=== PATIENT | female | born 1995 | race Caucasian/White ===

== ENCOUNTER 2019-11-04 01:06 | Emergency (ER) | payer OTHER, BC, SELFPAY ==
--- NOTE | ~2019-11-04 | CT_ITS ---
EXAMINATION: CT abdomen pelvis w con DATE: 11/04/2019 03:28 INDICATION: Generalized abdominal pain. TECHNIQUE: Computed tomography (CT) of the abdomen and pelvis was performed with 100 mL Omnipaque 350 intravenous contrast. Automated exposure control and iterative reconstruction technique were employe d. The dose-length product was 636.49 mGy-cm. COMPARISON: None. FINDINGS: The visualized portions of the lung bases demonstrate mild atelectasis. No pleural effusion . The heart size is normal. No pericardial effusion. The liver, gallbladder, spleen, pancreas, adrena l glands, and kidneys are normal. There are no dilated loops of bowel. The appendix is normal. There are no pathologically enlarged lymph nodes. There is no free intraperitoneal fluid. The bones are unr emarkable. IMPRESSION: 1. No etiology for the patient's symptoms. Reviewed, dictated and finalized at location A. [facility]
[2019-11-04 01:09] VITALS: BP 141/89; PULSE 111; RESP 16; TEMP 37.3; O2SAT 99
[2019-11-04 01:15] VITALS: BP 139/90; PULSE 100; RESP 22; TEMP 38.3; O2SAT 99
--- NOTE | 2019-11-04 01:18 | ED.FEMALEGU ---
HPI - Female Genitourinary General Chief complaint: Urogenital-Female Stated complaint: bladder infection/ fever/ pain Time Seen by Provider: 11/04/19 01:18 Source: patient Mode of arrival: ambulatory Limitations: no limitations History of Present Illness HPI Narrative: A 24 y/o female presents to the ED with c/o dysuria for 4 days. Pt has a PMHx of frequent UTIs and states that she gets a UTI about once a year. Pt's LNMP was 3 weeks ago. Pt last took Tylenol at 7:00 PM. She reports a fever since yesterday, pelvic pain, back pain, and N/V, but denies lightheadedness and dizziness. Pertinent past history: recurrent UTIs Onset (ago): day(s) (4) Urinary symptoms: Dysuria Related Data Allergies Allergy/AdvReac Type Severity Reaction Status Date / Time No Known Allergies Allergy Unverified 08/09/16 11:56 Review of Systems Review of Systems: All systems reviewed & are unremarkable except as noted in HPI and below Constitutional: Constitutional: Reports fever(s) Comments: Denies: lightheadedness, dizziness Gastrointestinal: Gastrointestinal: Reports nausea and Reports vomiting Genitourinary: Genitourinary: Reports dysuria Musculoskeletal: Musculoskeletal: Reports back pain Comments: Reports: pelvic pain PMFSH Past Medical History Medical History (Updated 11/04/19 @ 05:07 by Heather Thompson MD) UTI (urinary tract infection) Social History Social History (Updated 11/04/19 @ 01:27 by Meredith Becker) Smoking status: Never smoker Comments PCP: Physician not on staff Exam Narrative: Exam Narrative: GENERAL: Well-appearing, well-nourished, and mild distress due to pain. HEAD: Normocephalic, atraumatic EYES: PERRLA and EOMI, conjunctiva clear without discharge THROAT:Mucous membranes moist, Oropharynx normal without erythema, exudate, peritonsillar swelling or fluctuance NECK: Supple, without lymphadenopathy or mass RESPIRATORY: No respiratory distress, Airway patent, Respirations non-labored, Clear to auscultation without rales, rhonchi or wheeze HEART: Regular rate and rhythm. No murmur heard. Normal peripheral pulses. ABDOMEN: Soft, Diffuse abdominal tenderness, nondistended, normal active bowel sounds. No masses. No rebound or guarding, No organomegaly. EXTREMITIES: No edema, normal strength with full range of motion. SKIN: Warm, dry, normal color without rash NEURO: Alert and oriented x3. CN 2-12 grossly intact. No focal deficits. PSYCH: Normal mood and affect. : External Female Exam: No lesion and No lesion Speculum Exam - Vagina: other (yellow and white mucous discharge, no odor) Speculum Exam - Cervix: Cervical os closed Bimanual exam- vagina & uterus: normal palpation Bimanual Exam- Adnexa, other: no masses and No adnexal tenderness Course Course Emergency Course: Patient presented wit habdominal pain, nausea, vomiting, fever and UTI symptoms. She denies uri symptoms. Patient is symptomatic with Urine so will start on antibiotics. Vital Signs Vital signs: Vital Signs Temperature 99.1 F 11/04/19 01:09 Pulse Rate 111 H 11/04/19 01:09 Respiratory Rate 16 11/04/19 01:09 Blood Pressure 141/89 H 11/04/19 01:09 Pulse Oximetry 99 11/04/19 01:09 Temperature 100.9 F H 11/04/19 01:15 Pulse Rate 100 11/04/19 01:15 Respiratory Rate 22 H 11/04/19 01:15 Blood Pressure 139/90 11/04/19 01:15 Pulse Oximetry 99 11/04/19 01:15 MDM - Female Genitourinary Lab Data Attestation: I reviewed the patient's lab results. Result diagrams: 11/04/19 01:57 11/04/19 01:57 Labs: Lab Results 11/04/19 11/04/19 11/04/19 Range/Units 01:42 01:57 01:57 WBC 10.4 H (4.5-10.0) K/mm3 RBC 4.33 (4.2-5.4) M/mm3 Hgb 13.7 (12.0-15.0) g/dL Hct 41.8 (37.0-47.0) % MCV 96.5 (80-100) fl MCH 31.6 (26-34) pg MCHC 32.8 (32-36) g/dl RDW 12.2 (11.5-14.5) % Plt Count 217 (150-375) k/mm3 MPV 11.0 H (7.4-10.4) fl Immat
--- NOTE | 2019-11-04 02:05 | PC.NURSE ---
Pain around abdomen upon palpation.
[2019-11-04 02:06] LABS: Add Urine Microscopic? YES; Appearance Urine Cloudy (Clear); Bacteria Urine Trace /hpf; Bilirubin Urine Negative (Negative); Blood Urine Negative (Negative); Color Urine Yellow (Yellow); Glucose Urine UA Negative (Negative); Ketones Urine Negative (Negative); Leukocyte Esterase Ur 1+ LEU/UL (Negative); Mucus Urine Rare /lpf; Nitrate Urine Negative (Negative); Protein Urine Negative (Negative); Specific Grav Ur 1.027 (1.001-1.035); Squamous Epithelial Cell Urine Many /hpf (Few); Urobilinogen Urine Negative mg/dL (<2.0)
[2019-11-04] MEDS: LACTATED RINGERS 1,000 ML 999 ML IV CONT (02:15)
[2019-11-04] MEDS: ONDANSETRON INJ 4 MG/2 ML VIAL IV PUSH (02:16)
[2019-11-04 02:59] LABS: Lipase 45 U/L (23-300)
[2019-11-04 03:00] LABS: Alanine Aminotransferase 23 U/L (4-35); Albumin Level 4.2 g/dL (3.5-5.1); Alkaline Phosphatase 105 U/L (38-126); Aspartate Amino Transferase 25 U/L (14-36); Basophils Percent Auto 0.2 % (0.2-1.2); Bilirubin,Total 0.3 mg/dL (0.2-1.3); Blood Urea Nitrogen 12 mg/dL (7-17); Calcium 8.6 mg/dL (8.4-10.2); Carbon Dioxide 26 mmol/L (22-30); Chloride 102 mmol/L (98-107); Eosinophils Absolute Auto 0.1 K/mm3 (0-0.3); Eosinophils Percent Auto 0.5 % (0-4.4); Estimated CRCL calculation 92 ml/min; Estimated Glomerular Filt Rate > 60; Glucose 112 mg/dL (65-105); Hematocrit 41.8 % (37.0-47.0); Hemoglobin 13.7 g/dL (12.0-15.0); Immature Granulocyte Absolute 0.03 K/mm3 (0.00-0.031); Immature Granulocyte Percent A 0.3 % (0-0.5); Lymphocytes Absolute Auto 1.65 K/mm3 (0.9-3.2); Lymphocytes Percent Auto 15.9 % (18.3-44.2); Mean Corpuscular HGB Conc 32.8 g/dl (32-36); Mean Corpuscular Hemoglobin 31.6 pg (26-34); Mean Corpuscular Volume 96.5 fl (80-100); Monocytes Absolute Auto 0.9 K/mm3 (0.1-0.6); Monocytes Percent Auto 9.1 % (2.6-8.5); Neutrophils Absolute Auto 7.7 K/mm3 (1.3-6.7); Platelet Count Result 217 k/mm3 (150-375); Potassium 4.2 mmol/L (3.4-5.0); Red Blood Count 4.33 M/mm3 (4.2-5.4); Red Cell Distribution Width 12.2 % (11.5-14.5); Sodium 139 mmol/L (137-145); White Blood Count 10.4 K/mm3 (4.5-10.0)
[2019-11-04 03:01] LABS: Lactic Acid Reflex 1.8 mmol/L (0.7-2.1)
[2019-11-04] MEDS: KETOROLAC 30 MG/ML VIAL (*BKC) IV PUSH (03:59)
[2019-11-04 05:19] VITALS: BP 108/76; RESP 17
== END 2019-11-04 19:21 | disposition home or self-care (01) ==
PROVIDERS: Emergency Provider General Practice
DX: N39.0 Urinary tract infection, site not specified (principal)
CPT/HCPCS: 36415; 74177; 80053; 81001; 81025; 83605; 83690; 85025; 87070; 87491; 87591; 87808; 96361; 96374; 96375; 99284; J0131; J1885; J2405; J7120; Q9967

== ENCOUNTER 2019-11-04 15:14 | Inpatient (IN) | payer OTHER, BC, SELFPAY ==
[2019-11-04 15:20] VITALS: BP 136/84; PULSE 96; RESP 18; TEMP 36.9; O2SAT 100
--- NOTE | 2019-11-04 15:36 | ED.HA ---
HPI - Headache General Chief Complaint: Headache Stated Complaint: migraine h/a, bodyaches, fever Time Seen by Provider: 11/04/19 15:28 Source: patient and RN notes reviewed Mode of arrival: ambulatory Limitations: no limitations History of Present Illness HPI Narrative: Pt is a 24 y/o female who presents to the ED with c/o severe frontal headache starting around 1 AM this morning. She notes that she developed a sharp pain in her forehead radiating into her bilateral temples early this morning. Pt states that she also developed a fever of 102 degrees, body aches, nausea, and vomiting early this morning. She notes that she was evaluated in the [place] ED for her symptoms early this morning, but states that her headache has worsened since she was discharged home. Pt notes that she is concerned she may have meningitis. She currently reports neck stiffness, but denies any dysuria or other urinary symptoms. Pt rates her headache at 9/10. MD elicited complaint: headache Onset (ago): hour(s) (14) Onset description: while at rest Location: frontal Severity: severe Pain scale (0-10): 9 Quality & Timing: sharp Associated symptoms: fever, nausea, vomiting, neck stiffness and other (body aches) Related Data Home Medications Medication Instructions Recorded Confirmed norethindrone-e.estradiol-iron 1 tablet PO DAILY 11/04/19 11/04/19 [09/19 (28)] Allergies Allergy/AdvReac Type Severity Reaction Status Date / Time No Known Allergies Allergy Unverified 08/09/16 11:56 Review of Systems Review of Systems: All systems reviewed & are unremarkable except as noted in HPI and below Constitutional: Constitutional: Reports body ache(s) and Reports fever(s) Gastrointestinal: Gastrointestinal: Reports nausea and Reports vomiting Genitourinary: Genitourinary: Denies hematuria and Denies dysuria Musculoskeletal: Musculoskeletal: Reports stiffness (neck) Neurologic: Reports headache(s) (frontal) [facility] Past Medical History Medical History (Updated 11/05/19 @ 08:00 by Lea Marin MD) No significant past medical history Surgical History Surgical History No significant past surgical history Family History Family History (Updated 11/04/19 @ 19:58 by Jayla Decker RN) Father Congestive heart failure Social History Social History (Updated 11/04/19 @ 22:07 by Adina Regalado DO) Social History: Primary care physician: None Code status: Full code Smoking status: Never smoker Alcohol intake: current Drinks per week: 2 Alcohol use details: She drinks 2-3 glasses a wine a week Substance use: never Substance use type: does not use Occupation/Education: occupation Additional occupation/education comments: 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 Gender identity (if verbalized by the patient): Female Spiritual care concerns: No Agree to blood products: Yes Exam Const: General: no acute distress and well developed Orientation/consciousness: oriented to person, oriented to place, oriented to time and patient oriented x3 HENMT: Head: normocephalic Ears: external ears normal General nose exam: Normal external nose present Neck: Neck: normal visual inspection Chest: Chest palpation & inspection: normal inspection of the chest and no tenderness Resp: Effort & Inspection: normal respiratory effort Auscultation: clear to auscultation bilaterally Cardio: Rate: regular rate Rhythm: regular rhythm GI: GI Palp: No abdominal tenderness and Yes Soft to palpation Skin: General skin exam: normal color and turgor normal Neuro: General: oriented to person, oriented to place, oriented to time and patient oriented x3 Cranial nerves: Yes CN's II-XII intact bilaterally Cognition (Neuro): normal cognition Motor exam (neuro): 5/5 motor strength present throughout Sensory Exam: normal sensation Extrem: General: no
[2019-11-04 15:54] LABS: Basophils Percent Auto 0.2 % (0.2-1.2); Eosinophils Percent Auto 0.2 % (0-4.4); Hematocrit 43.6 % (37.0-47.0); Hemoglobin 14.4 g/dL (12.0-15.0); Immature Granulocyte Absolute 0.03 K/mm3 (0.00-0.031); Immature Granulocyte Percent A 0.3 % (0-0.5); Lymphocytes Absolute Auto 1.57 K/mm3 (0.9-3.2); Lymphocytes Percent Auto 15.7 % (18.3-44.2); Mean Corpuscular Hemoglobin 31.9 pg (26-34); Mean Corpuscular Volume 96.5 fl (80-100); Mean Platelet Volume 10.2 fl (7.4-10.4); Monocytes Absolute Auto 0.7 K/mm3 (0.1-0.6); Monocytes Percent Auto 7.4 % (2.6-8.5); Neutrophils Absolute Auto 7.6 K/mm3 (1.3-6.7); Neutrophils Percent Auto 76.2 % (45.5-73.1); Platelet Count Result 202 k/mm3 (150-375); Red Blood Count 4.52 M/mm3 (4.2-5.4); Red Cell Distribution Width 12.3 % (11.5-14.5)
[2019-11-04 16:05] LABS: Blood Urea Nitrogen 9 mg/dL (7-17); Calcium 8.9 mg/dL (8.4-10.2); Carbon Dioxide 24 mmol/L (22-30); Chloride 105 mmol/L (98-107); Estimated CRCL calculation 92 ml/min; Estimated Glomerular Filt Rate > 60; Glucose 95 mg/dL (65-105); Potassium 4.2 mmol/L (3.4-5.0); Sodium 138 mmol/L (137-145)
[2019-11-04] MEDS: METOCLOPRAMIDE HCL INJ 10 MG/2 ML VIAL IV PUSH (16:09)
[2019-11-04] MEDS: KETOROLAC 30 MG/ML VIAL (*BKC) IV PUSH (16:10)
[2019-11-04] MEDS: SODIUM CHLORIDE 0.9% IV 1,000 ML 999 ML IV CONT (16:12)
[2019-11-04 17:01] LABS: Glucose CSF 47 mg/dL (40-70); Total Protein CSF 95 mg/dL (12-60)
[2019-11-04 17:27] LABS: Appearance CSF Clear (Clear); CSF source CSF
[2019-11-04 17:28] LABS: Color CSF Colorless (Colorless); Nucleated Cell CSF 833 /uL (0-5); Red Blood Cell CSF 0 (0-2)
[2019-11-04 17:40] LABS: Lymphocytes CSF 94 % (40-80); Neutrophils CSF 6 % (0-6)
[2019-11-04] MEDS: ACYCLOVIR SODIUM IVPB 700 MG in DEXTROSE 5% IN WATER 250 ML 266 MG IVPB (18:31)
--- NOTE | 2019-11-04 19:51 | ADMGEN ---
This patient, Virginia Mccoy, was admitted to Medical Room 248-. Patient/family oriented to hospital policies and general routines including ID bracelet, bed and alarms, visiting hours, pain management, procedures, bathroom and other care routines, personal items, smoking policy, room service/diet, and visiting hours. Valuables list has been completed. Information on how to activate the Rapid Response Team has been discussed. Patient/Family are encouraged to report perceived risks to care and to ask questions if they do not understand what they are told or what they should do.
[2019-11-04 20:00] VITALS: BP 113/71; PULSE 87; RESP 16; TEMP 36.4; O2SAT 98; BMI 32.7
[2019-11-04] MEDS: ACETAMINOPHEN 325 MG TABLET 650 MG PO (21:11)
--- NOTE | 2019-11-04 21:23 | PM.IMHP ---
H&P: HPI History of Present Illness Chief complaint: Headache, confusion and fever Narrative: Date and time of patient contact: 11/04/2019 at 9:30 p.m. Virginia Mccoy is a 24 year old female with no significant past medical history of presented to the ER with headache confusion and fever. The patient had initially presented to the ER on the early childhood education specialist hours of the . She had been having headache and fever starting on the . She had had some dysuria 3 or 4 days ago that had since resolved. She does have a history of urinary tract infections about once a year. She reports that she usually does not know that she has a urinary tract infection until she has a fever. She had a UA that 1+ esterase, 3-5 RBCs, 4-6 wbc's and many squamous cells with trace bacteria. Her urine was not sent for urine culture at the time. She also had a pelvic exam with Trichomonas negative with gonorrhea pending. She denied any vaginal discharge or dyspareunia. She has been having now 3 days fevers with a temperature as high as 102?, frontal and temporal headache worse with movement or activity. Her headache is moderate to severe in intensity. Headache has been worse with bright lights and with movement or exertion. She she has noticed a neck discomfort with flexion of her neck and with flexion of her hips. She reports that her headache got so bad that she had a few episodes of emesis clear material. She has had decreased appetite. She reports generalized body aches. 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 Her pain is a 9 at 10 in intensity but improved and is more moderate in intensity now. Her pain was improved after Tylenol administration. She does snore and feels frequently fatigued. She has never been tested for sleep apnea. Her weight has been stable. She is on control pills and has 2 more pills left to her pill pack. Review of Systems Review of Systems: Narrative: Except as documented in the HPI, all other systems were reviewed and are negative. [facility] Past Medical History Medical History (Updated 11/04/19 @ 21:26 by Adina Regalado DO) No significant past medical history Surgical History Surgical History No significant past surgical history Family History Family History (Updated 11/04/19 @ 19:58 by Jayla Decker RN) Father Congestive heart failure Social History Social History (Updated 11/04/19 @ 22:07 by Adina Regalado DO) Social History: Primary care physician: None Code status: Full code Smoking status: Never smoker Alcohol intake: current Drinks per week: 2 Alcohol use details: She drinks 2-3 glasses a wine a week Substance use: never Substance use type: does not use Occupation/Education: occupation Additional occupation/education comments: 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 Gender identity (if verbalized by the patient): Female Spiritual care concerns: No Agree to blood products: Yes Meds Home Medications and Allergies Home Medications Medication Instructions Recorded Confirmed Type norethindrone-e.estradiol-iron 1 tablet PO DAILY 11/04/19 11/04/19 History [09/19 (28)] Allergies Allergy/AdvReac Type Severity Reaction Status Date / Time No Known Allergies Allergy Unverified 08/09/16 11:56 Vital Signs Vital Signs - 24 hr 11/04/19 15:20 Temperature 98.5 F Pulse Rate 96 Respiratory Rate 18 Blood Pressure 136/84 Pulse Oximetry 100 Exam Narrative: Exam Narrative: PHYSICAL EXAM: WEIGHT 68 kg BMI 29.3 General: No acute distress, well-developed, obese HEENT: Mucous membranes are moist, no oral pharyngeal erythema, no scleral icterus, pupils are equal and reactive, nares patent Neck: No JVD, thyromegaly or lymphadenopathy Respiratory: Clear to auscultation bilaterally, no increased work of breathing Cardiovascular: Normal S1-S
[2019-11-04] MEDS: SODIUM CHLORIDE 0.9% IV 1,000 ML 100 ML IV CONT (22:32)
[2019-11-05 02:00] VITALS: BP 112/77; PULSE 83; RESP 16; TEMP 37.3; O2SAT 98
[2019-11-05] MEDS: KETOROLAC 30 MG/ML VIAL (*BKC) IV PUSH ×4 (02:50→22:25)
[2019-11-05 06:00] VITALS: BP 110/61; PULSE 96; RESP 16; TEMP 37.2; O2SAT 98
[2019-11-05] MEDS: ACYCLOVIR SODIUM IVPB ×3 (06:04→21:14)
[2019-11-05] MEDS: DEXTROSE 5% IVPB ×3 (06:04→21:14)
[2019-11-05] MEDS: SODIUM CHLORIDE 0.9% IV 1,000 ML 100 ML IV CONT (10:57)
[2019-11-05 11:00] VITALS: BP 123/81; PULSE 86; RESP 16; TEMP 36.6; O2SAT 100
[2019-11-05] MEDS: LIDOCAINE 5% PATCH 2 PATCH TRANSDERM (12:08)
[2019-11-05 14:00] VITALS: BP 124/81; PULSE 75; RESP 16; TEMP 37.2; O2SAT 100
--- NOTE | 2019-11-05 16:58 | PM.IMPN ---
Progress Note: A&P Assessment and Plan (1) Viral meningitis: Code(s): A87.9 - Viral meningitis, unspecified Status: Acute Assessment and Plan: Clinical findings and CSF results consistent with viral meningitis. Acyclovir started. Consider early bacterial so will contnue empiric antibiotic therapy with vancomycin and Rocephin. WBC 10K with left shift. BCx pending. CSF cultures pending. CSF Gram stain showing no organisms. UPT negative. Continue to follow. Subjective Date/time seen: 11/05/19 16:58 Interval history: 24yo female here for headache and neck pain. Patient still with photophobia. She is up walking to the BR. She still has the neck and lumbar pain. Lumbar pain began before the LP. She overall has been feeling achy. No appetite. No n/v. Exam Narrative: Exam Narrative: Gen - JARED sitharris gup in bed playing cards with family Neck - tender with forward flexion Chest - CTA bilaterally, nml RR CV - RRR S1/S2 Abd - soft, NT/ND, +BS Back - diane-lumbar area sensitive to touch. No swelling at LP site Ext - no pedal edema Neuro - AO. Nml strength. No focal weakess Skin - warm and dry. no rash Objective Data Vital Signs Vital Signs: Vital Signs - 24 hr 11/04/19 20:00 11/05/19 02:00 11/05/19 06:00 Temperature 97.5 F L 99.1 F 98.9 F Pulse Rate 87 83 96 Respiratory Rate 16 16 16 Blood Pressure 113/71 112/77 110/61 Pulse Oximetry 98 98 98 11/05/19 11:00 11/05/19 14:00 Temperature 97.9 F 99.0 F Pulse Rate 86 75 Respiratory Rate 16 16 Blood Pressure 123/81 124/81 Pulse Oximetry 100 100 Intake/Output Intake/Output: Intake & Output 11/02/19 11/03/19 11/04/19 11/05/19 23:59 23:59 23:59 23:59 Intake Total 1614 1464 Output Total 500 Balance 1614 964 Meds/Results Medications: Active Medications Generic Name Dose Route Start Last Admin Trade Name Freq PRN Reason Stop Dose Admin Acetaminophen 650 mg 11/04/19 21:01 11/04/19 21:11 Tylenol Tablet PO 650 mg Q4H PRN Administration Mild Pain (1-3) or Fever Acyclovir Sodium 700 mg/ 114 mls @ 110 mls/hr 11/05/19 06:00 11/05/19 16:06 Dextrose IVPB 110 mls/hr Q8HR MARCK Administration Sodium Chloride 1,000 mls @ 100 mls/hr 11/04/19 22:15 11/05/19 10:57 Normal Saline Iv IV CONT 100 mls/hr .Q10H MARCK Administration Ceftriaxone Sodium 2 gm in 100 mls @ 200 mls/hr 11/05/19 09:00 11/05/19 09:14 Rocephin 2 Gm/D5w 100 Ml IVPB Infused Q12H MARCK Infusion Vancomycin HCl 1,500 mg in 500 mls @ 333.333 mls/hr 11/05/19 10:00 11/05/19 10:57 Vancomycin 1,500 Mg/D5w 500 Ml IVPB 333.3 mls/hr Q12H MARCK Administration Ketorolac Tromethamine 30 mg 11/05/19 02:39 11/05/19 16:05 Toradol Inj IV PUSH 30 mg Q6H PRN Administration Pain Rated 4-6 Lidocaine 2 patch 11/05/19 09:00 11/05/19 12:08 Lidoderm TRANSDERM 2 patch DAILY MARCK Administration Ondansetron HCl 4 mg 11/04/19 22:16 Zofran Inj IV PUSH Q6H PRN Nausea And Vomiting Labs Labs: Laboratory Results - last 24 hr 11/04/19 11/04/19 16:40 16:40 CSF Source Csf CSF Appearance Clear CSF Color Colorless CSF RBC 0 CSF Tot Nucleated Cells 833 H CSF Neutrophils 6 CSF Lymphocytes 94 H CSF Glucose 47 CSF Total Protein 95 H Quality VTE Prophylaxis VTE prophylaxis: mechanical ordered (SCDs)
[2019-11-05 18:00] VITALS: BP 120/68; PULSE 94; RESP 16; TEMP 37.1; O2SAT 100
--- NOTE | 2019-11-05 18:57 | WPDNEURCNPN ---
Assessment and Plan Assessment and plan (1) Viral meningitis: Code(s): A87.9 - Viral meningitis, unspecified Status: Acute Additional Plan the present management needs to be continued the patient is definitely feeling better both clinically and otherwise once the cultures are negative and the PCR for herpes negative all the antibiotic and the antiviral agents can be discontinued Consult date: 11/05/19 Time Seen: 18:59 HPI: Virginai Mccoy is a 24 year old female was examined by this examiner early this evening for viral meningitis she is definitely feeling better however as post lumbar puncture headache and some dizziness she denies any severe headache loss of consciousness lateralizing paresthesias or focal weakness lumbar puncture and the CSF analysis consistent with a viral meningitis she is being treated with the antibiotics and the antiviral agent till the cultures are back and the PCR for the herpes is negative Review of Systems Review of Systems: All systems reviewed & are unremarkable except as noted in HPI and below PMFSH Past Medical History Medical History No significant past medical history Surgical History Surgical History No significant past surgical history Family History Family History Father Congestive heart failure Social History Social History Social History: Primary care physician: None Code status: Full code Smoking status: Never smoker Alcohol intake: current Drinks per week: 2 Alcohol use details: She drinks 2-3 glasses a wine a week Substance use: never Substance use type: does not use Occupation/Education: occupation Additional occupation/education comments: 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 Gender identity (if verbalized by the patient): Female Spiritual care concerns: No Agree to blood products: Yes Meds Home Medications and Allergies Home Medications Medication Instructions Recorded Confirmed Type norethindrone-e.estradiol-iron 1 tablet PO DAILY 11/04/19 11/04/19 History [09/19 (28)] Allergies Allergy/AdvReac Type Severity Reaction Status Date / Time No Known Allergies Allergy Unverified 08/09/16 11:56 Vital Signs Vital Signs - 24 hr 11/04/19 20:00 11/05/19 02:00 11/05/19 06:00 Temperature 36.4 C L 37.3 C 37.2 C Pulse Rate 87 83 96 Respiratory Rate 16 16 16 Blood Pressure 113/71 112/77 110/61 Pulse Oximetry 98 98 98 11/05/19 11:00 11/05/19 14:00 Temperature 36.6 C 37.2 C Pulse Rate 86 75 Respiratory Rate 16 16 Blood Pressure 123/81 124/81 Pulse Oximetry 100 100 Exam Const: General: comfortable and no acute distress HENMT: General nose exam: Normal nares present Mouth: Yes moist mucous membranes Eyes: General: appearance normal, both eyes and all related structures Neck: Neck: supple and no JVD Resp: Auscultation: clear to auscultation bilaterally Cardio: Rate: regular rate Rhythm: regular rhythm GI: Auscultation: normal bowel sounds Skin: General skin exam: normal color and no rashes or lesions noted Neuro: Other: patient is perfectly normal from the neurological standpoint there is no change in the mental status is speech and language functions normal cranial examination is normal motor examination is normal gait and station is preserved reflexes are preserved is no sensory motor deficit and the Babinski sign is negative Results Labs CBC & Chem 7: 11/04/19 15:49 11/04/19 15:49 Quality VTE Prophylaxis VTE prophylaxis: mechanical ordered (SCDs)
[2019-11-05] MEDS: ONDANSETRON INJ 4 MG/2 ML VIAL IV PUSH (20:10)
[2019-11-05] MEDS: ACETAMINOPHEN 325 MG TABLET 650 MG PO (20:14)
[2019-11-05 22:00] VITALS: BP 120/70; PULSE 93; RESP 16; TEMP 37.6; O2SAT 97
[2019-11-06] VITALS (7 sets, daily range): BP systolic 103–132; BP diastolic 62–91; PULSE 71–104; RESP 16; TEMP 36.3–37.6; O2SAT 99–100
--- NOTE | 2019-11-06 03:01 | PC.NURSE ---
Daylight Savings Time For Daylight Savings Time Ending in the Fall - Clocks are moved back. For Daylight Savings Time Beginning in the Spring - Clocks are moved ahead. For [facility], the time of change occurs at 0200 hrs. Time is taken from the civil process server. This entry on the patient's chart recognizes the change in time reflected during documentation. Example: 2 entries for vital signs may be charted for 0200 hrs.
[2019-11-06] MEDS: ACYCLOVIR SODIUM IVPB ×3 (05:13→21:08)
[2019-11-06] MEDS: DEXTROSE 5% IVPB ×3 (05:13→21:08)
[2019-11-06] MEDS: SODIUM CHLORIDE 0.9% IV 1,000 ML 70 ML IV CONT ×2 (05:15→20:21)
[2019-11-06] MEDS: ACETAMINOPHEN 325 MG TABLET 650 MG PO ×3 (06:19→20:19)
[2019-11-06] MEDS: KETOROLAC 30 MG/ML VIAL (*BKC) IV PUSH (07:59)
[2019-11-06] MEDS: LIDOCAINE 5% PATCH 2 PATCH TRANSDERM (08:00)
--- NOTE | 2019-11-06 15:50 | WPDNEURORHBP ---
Subjective Date/time seen: 11/06/19 15:50 Interval history: this 24-year-old young woman is doing remarkably well laughing and giggling having a decent conversation and much better than the previous days denies any headache nausea vomiting chest pain shortness of breath she is on antibiotics and also antiviral agents to the cultures are come back from what sounds like a viral meningitis garden variety once this is done then she probably can be discharged tomorrow there is no change in the mental status and nothing to suggest any ongoing intracranial process Review of Systems Review of Systems: All systems reviewed & are unremarkable except as noted in HPI and below Exam Const: General: comfortable and no acute distress HENMT: General nose exam: Normal nares present Mouth: Yes moist mucous membranes Eyes: General: appearance normal, both eyes and all related structures Neck: Neck: supple and no JVD Resp: Effort & Inspection: normal respiratory effort Auscultation: clear to auscultation bilaterally Cardio: Rate: regular rate Rhythm: regular rhythm GI: GI Palp: Yes Soft to palpation Auscultation: normal bowel sounds Skin: General skin exam: normal color and no rashes or lesions noted Neuro: Other: perfectly normal mental status examination likewise normal cranial examination normal motor functions of both upper lower extremity normal gait and station normal sensations and normal cerebellar testing and normal gait and station Extrem: General: normal to inspection Psych: Mental Status: mental status grossly normal Objective Data Vital Signs Vital Signs: Vital Signs - 24 hr 11/05/19 18:00 11/05/19 22:00 11/06/19 03:00 Temperature 37.1 C 37.6 C H 37.0 C Pulse Rate 94 93 71 Respiratory Rate 16 16 16 Blood Pressure 120/68 120/70 103/63 Pulse Oximetry 100 97 99 11/06/19 06:00 11/06/19 10:00 11/06/19 13:12 Temperature 37.6 C H 36.8 C 37.1 C Pulse Rate 104 H 98 Respiratory Rate 16 16 Blood Pressure 119/62 129/91 H Pulse Oximetry 99 100 Intake/Output Intake/Output: Intake & Output 11/03/19 11/04/19 11/05/19 11/07/19 23:59 23:59 23:59 00:59 Intake Total 1612 7702 2444 Output Total 1850 1000 Balance 2743 233 9110 Meds/Results Medications: Active Medications Generic Name Dose Route Start Last Admin Trade Name Freq PRN Reason Stop Dose Admin Acetaminophen 650 mg 11/04/19 21:01 11/06/19 13:08 Tylenol Tablet PO 650 mg Q4H PRN Administration Mild Pain (1-3) or Fever Acyclovir Sodium 700 mg/ 114 mls @ 110 mls/hr 11/05/19 06:00 11/06/19 14:37 Dextrose IVPB 110 mls/hr Q8HR MARCK Administration Sodium Chloride 1,000 mls @ 70 mls/hr 11/04/19 22:15 11/06/19 05:15 Normal Saline Iv IV CONT 70 mls/hr .[id number] MARCK Administration Ceftriaxone Sodium 2 gm in 100 mls @ 200 mls/hr 11/05/19 09:00 11/06/19 08:30 Rocephin 2 Gm/D5w 100 Ml IVPB Infused Q12H MARCK Infusion Vancomycin HCl 1,500 mg in 500 mls @ 333.333 mls/hr 11/05/19 10:00 11/06/19 12:15 Vancomycin 1,500 Mg/D5w 500 Ml IVPB Infused Q12H MARCK Infusion Ketorolac Tromethamine 30 mg 11/05/19 02:39 11/06/19 07:59 Toradol Inj IV PUSH 30 mg Q6H PRN Administration Pain Rated 4-6 Lidocaine 2 patch 11/05/19 09:00 11/06/19 08:00 Lidoderm TRANSDERM 2 patch DAILY MARCK Administration Ondansetron HCl 4 mg 11/04/19 22:16 11/05/19 20:10 Zofran Inj IV PUSH 4 mg Q6H PRN Administration Nausea And Vomiting Progress Note: A&P Assessment and Plan (1) Viral meningitis: Code(s): A87.9 - Viral meningitis, unspecified Status: Acute Additional Plan discussed with the hospitalist the patient is doing remarkably well and wants her cultures and the PCR for herpes is negative she can be discharged with the current medications
--- NOTE | 2019-11-06 16:10 | PM.IMPN ---
Progress Note: A&P Assessment and Plan (1) Viral meningitis: Code(s): A87.9 - Viral meningitis, unspecified Status: Acute Assessment and Plan: Clinical findings and CSF results consistent with viral meningitis. Remains on Acyclovir. Early bacterial infection also being considered so she will remain on IV abx. WBC 10K with left shift on admission. [id number]. CSF cultures NGTD. CSF Gram stain showing no organisms. UPT negative. HSV PCR pending. Continue to follow. Discussed Nephrology. Appreciate neurology input Subjective Date/time seen: 11/06/19 16:10 Interval history: 24yo female here for headache and neck pain. QUISPE better. Neck stiffness improved as well. Eating small amounts. low back better. Exam Narrative: Exam Narrative: Gen - NARD Neck - improved ROm with less pain Chest - CTA bilaterally, nml RR CV - RRR S1/S2 Abd - soft, NT/ND, +BS Back - no diane-lumbar pain or swellinig Ext - no pedal edema Skin - warm and dry. no rash Objective Data Vital Signs Vital Signs: Vital Signs - 24 hr 11/05/19 18:00 11/05/19 22:00 11/06/19 03:00 Temperature 98.8 F 99.7 F H 98.6 F Pulse Rate 94 93 71 Respiratory Rate 16 16 16 Blood Pressure 120/68 120/70 103/63 Pulse Oximetry 100 97 99 11/06/19 06:00 11/06/19 10:00 11/06/19 13:12 Temperature 99.7 F H 98.2 F 98.7 F Pulse Rate 104 H 98 Respiratory Rate 16 16 Blood Pressure 119/62 129/91 H Pulse Oximetry 99 100 Intake/Output Intake/Output: Intake & Output 11/03/19 11/04/19 11/05/19 11/07/19 23:59 23:59 23:59 00:59 Intake Total 1614 2812 2444 Output Total 1850 1000 Balance 2107 086 4530 Meds/Results Medications: Active Medications Generic Name Dose Route Start Last Admin Trade Name Freq PRN Reason Stop Dose Admin Acetaminophen 650 mg 11/04/19 21:01 11/06/19 13:08 Tylenol Tablet PO 650 mg Q4H PRN Administration Mild Pain (1-3) or Fever Acyclovir Sodium 700 mg/ 114 mls @ 110 mls/hr 11/05/19 06:00 11/06/19 14:37 Dextrose IVPB 110 mls/hr Q8HR MARCK Administration Sodium Chloride 1,000 mls @ 70 mls/hr 11/04/19 22:15 11/06/19 05:15 Normal Saline Iv IV CONT 70 mls/hr .[id number] MARCK Administration Ceftriaxone Sodium 2 gm in 100 mls @ 200 mls/hr 11/05/19 09:00 11/06/19 08:30 Rocephin 2 Gm/D5w 100 Ml IVPB Infused Q12H MARCK Infusion Vancomycin HCl 1,500 mg in 500 mls @ 333.333 mls/hr 11/05/19 10:00 11/06/19 12:15 Vancomycin 1,500 Mg/D5w 500 Ml IVPB Infused Q12H MARCK Infusion Ketorolac Tromethamine 30 mg 11/05/19 02:39 11/06/19 07:59 Toradol Inj IV PUSH 30 mg Q6H PRN Administration Pain Rated 4-6 Lidocaine 2 patch 11/05/19 09:00 11/06/19 08:00 Lidoderm TRANSDERM 2 patch DAILY MARCK Administration Ondansetron HCl 4 mg 11/04/19 22:16 11/05/19 20:10 Zofran Inj IV PUSH 4 mg Q6H PRN Administration Nausea And Vomiting Quality VTE Prophylaxis VTE prophylaxis: mechanical ordered (SCDs)
[2019-11-06 21:32] LABS: Vancomycin Trough 10.4 ug/mL (10.0-20.0)
[2019-11-07 03:21] VITALS: BP 109/66; PULSE 66; RESP 16; TEMP 36.6; O2SAT 98
[2019-11-07] MEDS: DEXTROSE 5% IVPB ×3 (05:31→20:55)
[2019-11-07] MEDS: ACYCLOVIR SODIUM IVPB ×3 (05:31→20:55)
[2019-11-07] MEDS: ACETAMINOPHEN 325 MG TABLET 650 MG PO ×3 (05:35→20:17)
[2019-11-07 06:17] VITALS: BP 129/79; PULSE 98; RESP 18; TEMP 36.7; O2SAT 100
[2019-11-07 06:21] LABS: Estimated CRCL calculation 132 ml/min; Estimated Glomerular Filt Rate > 60
[2019-11-07] MEDS: LIDOCAINE 5% PATCH 2 PATCH TRANSDERM (10:51)
[2019-11-07 11:59] VITALS: BP 130/86; PULSE 74; RESP 18; TEMP 37.2; O2SAT 100
[2019-11-07 14:00] VITALS: BP 126/73; PULSE 87; RESP 15; TEMP 36.8; O2SAT 100
--- NOTE | 2019-11-07 16:57 | PM.IMPN ---
Progress Note: A&P Assessment and Plan (1) Viral meningitis: Code(s): A87.9 - Viral meningitis, unspecified Status: Acute Assessment and Plan: Clinical findings and CSF results consistent with viral meningitis. Remains on Acyclovir. Early bacterial infection also being considered so she is currently on Rocephin and Vancomycin at meningitic doses. WBC 10K with left shift on admission. BCx NGTD. CSF Gram stain showing no organisms. CSF cultures NGTD. UPT negative. HSV PCR still pending. Called lab and they state result should be final tomorrow. Subjective Date/time seen: 11/07/19 0800 Interval history: 24yo female here for headache and neck pain. Feels much better today. Eating better. Back and neck pain improved as well. Exam Narrative: Exam Narrative: Gen - NARD Chest - CTA bilaterally, nml RR CV - RRR S1/S2 Abd - soft, NT/ND, +BS Ext - no pedal edema Skin - warm and dry. Objective Data Vital Signs Vital Signs: Vital Signs - 24 hr 11/06/19 18:00 11/06/19 22:18 11/07/19 03:21 Temperature 98.5 F 98.1 F 97.8 F Pulse Rate 81 82 66 Respiratory Rate 16 16 16 Blood Pressure 118/72 132/77 109/66 Pulse Oximetry 100 100 98 11/07/19 06:17 11/07/19 11:59 11/07/19 14:00 Temperature 98.1 F 99.0 F 98.2 F Pulse Rate 98 74 87 Respiratory Rate 18 18 15 Blood Pressure 129/79 130/86 126/73 Pulse Oximetry 100 100 100 Intake/Output Intake/Output: Intake & Output 11/04/19 11/05/19 11/06/19 11/07/19 22:59 22:59 23:59 23:59 Intake Total 2410 Output Total 1200 Balance 1210 Meds/Results Medications: Active Medications Generic Name Dose Route Start Last Admin Trade Name Freq PRN Reason Stop Dose Admin Acetaminophen 650 mg 11/04/19 21:01 11/07/19 12:44 Tylenol Tablet PO 650 mg Q4H PRN Administration Mild Pain (1-3) or Fever Acyclovir Sodium 700 mg/ 114 mls @ 110 mls/hr 11/05/19 06:00 11/07/19 14:46 Dextrose IVPB 110 mls/hr Q8HR MARCK Administration Sodium Chloride 1,000 mls @ 70 mls/hr 11/04/19 22:15 11/07/19 05:37 Normal Saline Iv IV CONT 70 mls/hr .[id number] MARCK Infusion Ceftriaxone Sodium 2 gm in 100 mls @ 200 mls/hr 11/05/19 09:00 11/07/19 12:40 Rocephin 2 Gm/D5w 100 Ml IVPB 200 mls/hr Q12H MARCK Administration Vancomycin HCl 1,750 mg in 500 mls @ 250 mls/hr 11/07/19 08:00 11/07/19 10:17 Vancomycin 1,750 Mg/D5w 500 Ml IVPB Infused Q12H MARCK Infusion Ketorolac Tromethamine 30 mg 11/05/19 02:39 11/06/19 07:59 Toradol Inj IV PUSH 30 mg Q6H PRN Administration Pain Rated 4-6 Lidocaine 2 patch 11/05/19 09:00 11/07/19 10:51 Lidoderm TRANSDERM 1 patch DAILY MARCK Administration Ondansetron HCl 4 mg 11/04/19 22:16 11/05/19 20:10 Zofran Inj IV PUSH 4 mg Q6H PRN Administration Nausea And Vomiting Labs Labs: Laboratory Results - last 24 hr 11/06/19 11/07/19 20:53 05:34 Creatinine 0.50 L Estim Creat Clear Calc 132 Estimated GFR > 60 Vancomycin Trough 10.4 Quality VTE Prophylaxis VTE prophylaxis: mechanical ordered (SCDs)
[2019-11-07] MEDS: SODIUM CHLORIDE 0.9% IV 1,000 ML 70 ML IV CONT (17:32)
[2019-11-07 18:00] VITALS: BP 112/61; PULSE 86; RESP 18; TEMP 36.6; O2SAT 99
[2019-11-07 20:00] VITALS: BP 110/70; PULSE 82; RESP 20; TEMP 36.5; O2SAT 98
[2019-11-07 22:03] LABS: Herpes Simplex Type 1 DNA PCR Not Detected (Not Detected); Herpes Simplex Type 2 DNA PCR Detected (Not Detected)
[2019-11-08] VITALS: BP 112/65; PULSE 67; RESP 20; TEMP 36.2; O2SAT 99
[2019-11-08 04:00] VITALS: BP 120/69; PULSE 74; RESP 18; TEMP 36.3; O2SAT 99
[2019-11-08] MEDS: DEXTROSE 5% IVPB ×2 (05:31→13:53)
[2019-11-08] MEDS: ACYCLOVIR SODIUM IVPB ×2 (05:31→13:53)
[2019-11-08] MEDS: ACETAMINOPHEN 325 MG TABLET 650 MG PO ×2 (05:43→10:42)
[2019-11-08 06:17] VITALS: BP 170/77; PULSE 78; RESP 11; TEMP 36.1; O2SAT 100
[2019-11-08] MEDS: LIDOCAINE 5% PATCH 2 PATCH TRANSDERM (08:49)
--- NOTE | 2019-11-08 11:57 | WPDNEUROPN ---
Progress Note: A&P Assessment and Plan (1) Viral meningitis: Code(s): A87.9 - Viral meningitis, unspecified Status: Acute Additional Plan spinal [id number] cells,cultures negative,[id number] DNAPCR positive will be started on po acyclovir and discharged and follow in the office Review of Systems Review of Systems: All systems reviewed & are unremarkable except as noted in HPI and below Exam Const: General: cooperative, healthy appearing, comfortable, no acute distress, well developed, alert, awake, Physically active and well groomed Nutritional Appearance: average body habitus Orientation/consciousness: patient oriented x3 Limitations: no limitations HENMT: Head: normal to inspection Ears: hearing grossly normal bilaterally General nose exam: Normal external nose present Face and sinus: normal facial exam Mouth: Yes Normal oral and palatal mucosa present Eyes: General: appearance normal, both eyes and all related structures Visual Mcgill: normal visual mcgill by confrontation Alignment and Position: alignment normal Periorbital: periorbital findings normal Eyelids: eyelids normal Conjunctivae: conjunctivae normal Sclera: sclerae normal Cornea: corneas normal Pupils: Equal, round and reactive pupils present EOM: EOMs intact bilaterally Direct Ophthalmoscopy: normal light reflex Neck: Neck: full ROM and no lymphadenopathy Resp: Effort & Inspection: normal respiratory effort and able to speak in complete sentences Auscultation: clear to auscultation bilaterally Cardio: Rate: regular rate Rhythm: regular rhythm Skin: General skin exam: no rashes or lesions noted Neuro: General: patient oriented x3, gait normal, moves all extremities and no meningeal signs Cranial nerves: Yes CN's II-XII intact bilaterally, Yes Equal, round and reactive pupils present, Yes Nystagmus not present, Yes Normal facial strength present, Yes facial symmetry, Yes Midline tongue present, Yes Normal gag reflex present, Yes Ability to bilaterally rotate head present and Yes Ability to bilaterally elevate shoulders present Cognition (Neuro): normal cognition Speech: normal speech Gait exam (Neuro): Normal gait present Motor exam (neuro): 5/5 motor strength present throughout Sensory Exam: normal sensation Deep tendon reflexes (DTR's): Right triceps reflex intensity grade: 1+, Left triceps reflex intensity grade: 1+, Rt Biceps (C5, C6): 1+, Left biceps reflex intensity grade: 1+, Right brachioradialis reflex intensity grade: 1+, Left brachioradialis reflex intensity grade: 1+, Right patellar reflex intensity grade: 1+, Left patellar reflex intensity grade: 1+, Right ankle reflex intensity grade: 1+ and Left ankle reflex intensity grade: 1+ Objective Data Vital Signs Vital Signs: Vital Signs - 24 hr 11/07/19 11:59 11/07/19 14:00 11/07/19 18:00 Temperature 37.2 C 36.8 C 36.6 C Pulse Rate 74 87 86 Respiratory Rate 18 15 18 Blood Pressure 130/86 126/73 112/61 Pulse Oximetry 100 100 99 11/07/19 20:00 11/08/19 00:00 11/08/19 04:00 Temperature 36.5 C 36.2 C L 36.3 C L Pulse Rate 82 67 74 Respiratory Rate 20 20 18 Blood Pressure 110/70 112/65 120/69 Pulse Oximetry 98 99 99 11/08/19 06:17 Temperature 36.1 C L Pulse Rate 78 Respiratory Rate 11 L Blood Pressure 170/77 H Pulse Oximetry 100 Intake/Output Intake/Output: Intake & Output 11/05/19 11/06/19 11/07/19 11/08/19 22:59 23:59 23:59 23:59 Intake Total 4647 1355 Output Total 3575 900 Balance 1072 455 Meds/Results Medications: Active Medications Generic Name Dose Route Start Last Admin Trade Name Freq PRN Reason Stop Dose Admin Acetaminophen 650 mg 11/04/19 21:01 11/08/19 10:42 Tylenol Tablet PO 650 mg Q4H PRN Administration Mild Pain (1-3) or Fever Acyclovir Sodium 700 mg/ 114 mls @ 110 mls/hr 11/05/19 06:00 11/08/19 07:17 Dextrose IVPB Infused Q8HR MARCK Infusion Ketorolac Tromethamine 30 mg 11/05/19 02:39 08
[2019-11-08 14:00] VITALS: BP 136/84; PULSE 100; RESP 14; TEMP 36.9; O2SAT 100
--- NOTE | 2019-11-08 15:34 | PM.IMPN ---
Progress Note: A&P Assessment and Plan (1) Viral meningitis: Code(s): A87.9 - Viral meningitis, unspecified Status: Acute Assessment and Plan: Clinical findings and CSF results consistent with viral meningitis. 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 All other cultures negative. No longer on antibiotics. IV acyclovir continues. Clinically has improved. Discussed with neurology today. Appreciate input. Will discharge home on oral acyclovir every 8 hours for an additional 5 days. Will also send home with Lidoderm patches. (2) DVT prophylaxis: Code(s): Z29.9 - Encounter for prophylactic measures, unspecified Status: Acute Assessment and Plan: SCDs. Time Spent With Patient Time with patient: 15 - 25 minutes Subjective Date/time seen: 11/08/19 15:34 Interval history: Date of Service: 11/08/2019. Admitted with viral meningitis. Feeling much better. Anxious to go home. No headache or dizziness. No vision changes. No chest pain. No shortness of breath. Review of Systems Review of Systems: Narrative: Feeling better. Wants to go home. Constitutional: Constitutional: Denies chills and Denies fever(s) Eyes: Eyes: Denies blurry vision ENT: Denies nasal congestion and Denies nasal discharge Cardiovascular: Cardiovascular: Denies chest pain Respiratory: Respiratory: Denies dyspnea Gastrointestinal: Gastrointestinal: Denies abdominal pain, Denies nausea and Denies vomiting Genitourinary: Genitourinary: Reports no additional female genitourinary complaints Musculoskeletal: Comments: Body aches improved. Integumentary/Breasts: Skin/Breast: Denies rash Neurologic: Denies headache(s) Psychiatric: Psychiatric: Denies anxiety, Denies confusion and Denies depression Exam Narrative: Exam Narrative: Awake and alert. Const: General: no acute distress HENMT: Mouth: Yes moist mucous membranes Neck: Neck: supple Lymphatic: lymphadenopathy not noted Resp: Auscultation: clear to auscultation bilaterally, no rales and no wheezes Cardio: Rate: regular rate Rhythm: regular rhythm Skin: General skin exam: normal color Neuro: General: gait normal Cognition (Neuro): normal cognition Speech: normal speech Extrem: General: no edema Psych: Mental Status: mental status grossly normal Affect: normal affect Objective Data Vital Signs Vital Signs: Vital Signs - 24 hr 11/07/19 18:00 11/07/19 20:00 11/08/19 00:00 Temperature 97.9 F 97.7 F 97.1 F L Pulse Rate 86 82 67 Respiratory Rate 18 20 20 Blood Pressure 112/61 110/70 112/65 Pulse Oximetry 99 98 99 11/08/19 04:00 11/08/19 06:17 11/08/19 14:00 Temperature 97.3 F L 97 F L 98.4 F Pulse Rate 74 78 100 Respiratory Rate 18 11 L 14 Blood Pressure 120/69 170/77 H 136/84 Pulse Oximetry 99 100 100 Intake/Output Intake/Output: Intake & Output 11/05/19 11/06/19 11/07/19 11/08/19 22:59 23:59 23:59 23:59 Intake Total 4647 1355 Output Total 3575 900 Balance 1072 455 Meds/Results Medications: Active Medications Generic Name Dose Route Start Last Admin Trade Name Freq PRN Reason Stop Dose Admin Acetaminophen 650 mg 11/04/19 21:01 11/08/19 10:42 Tylenol Tablet PO 650 mg Q4H PRN Administration Mild Pain (1-3) or Fever Acyclovir Sodium 700 mg/ 114 mls @ 110 mls/hr 11/05/19 06:00 11/08/19 13:53 Dextrose IVPB 110 mls/hr Q8HR MARCK Administration Ketorolac Tromethamine 30 mg 11/05/19 02:39 11/06/19 07:59 Toradol Inj IV PUSH 30 mg Q6H PRN Administration Pain Rated 4-6 Lidocaine 2 patch 11/05/19 09:00 11/08/19 08:49 Lidoderm TRANSDERM 1 patch DAILY MARCK Administration Ondansetron HCl 4 mg 11/04/19 22:16 11/05/19 20:10 Zofran Inj IV PUSH 4 mg Q6H PRN Administration Nausea And Vomiting Labs Labs: Laboratory Results - last 24 hr 11/04/19 16:40 CSF Herpes I DNA (PCR) Not detected CSF Herpes II DNA (PCR) Detected A* HSV (PCR) Source
--- NOTE | 2019-11-08 19:58 | PM.DS ---
DS: Diagnosis Admitting Diagnosis Admitting Diagnosis: Viral meningitis, unspecified Discharge Diagnosis (1) Viral meningitis: Code(s): A87.9 - Viral meningitis, unspecified Status: Acute DS: Summary Hospital Course Reason for hospitalization: Headache, confusion and fever. Hospital Course: Date of Service of Discharge: November 08, 2019. History of Present Illness: Patient is a 24-year-old with no significant past history presents to the emergency room complaint of headache, confusion and fever. Patient had presented to the emergency room earlier in the morning on 11/04/2019 with headache and fever starting on the . That time she also described dysuria 3-4 days earlier which had resolved. Patient did have UA with many squamous cells and trace bacteria. Urine was not sent for culture. Pelvic exam with no obvious findings. Patient returned with fever continuing for the previous 3 days as high as 102. Also reports a frontal, temporal headache worse with movement or activity. Headache moderate to severe in intensity. Headache worse with bright lights. She has also noticed neck discomfort. She additionally reports generalized body aches and decreased appetite. Lumbar puncture done in the emergency room. With all of her findings, she was admitted for further evaluation and treatment. Course in Hospital: Patient was placed on the medical floor where she remained for the duration of her stay. Initial CSF findings were most consistent with viral meningitis but while awaiting cultures, she was started on IV vancomycin and ceftriaxone as well as IV acyclovir. Blood cultures were also obtained. CSF culture eventually was negative for bacteria. Blood cultures negative. Additional CSF testing did reveal positive HSV 2 detected. With supportive care also including IV fluids, patient steadily improved. Once all culture results were available, IV antibiotics were discontinued. IV acyclovir was continued with the positive HSV2 testing. Neurology was consulted with patient in Hospital with help appreciated. Patient became afebrile with headache resolved for few days prior to ability to discharge. Sh was having no visual changes. No respiratory or cardiac issues. With patient clinically improved and plan to continue oral acyclovir as an outpatient, she was able to discharge home on November 08, 2019. Status at Discharge Cognitive/behavioral status at discharge: Stable. Functional status at discharge: independent ambulation Overall status at discharge: patient is back to baseline Time Spent with Patient Time attestation: Total time spent providing and/or coordinating discharge services: 35 minutes. Time spent: Greater than 30 minutes Exam Narrative: Exam Narrative: Vital Signs Temp Pulse Resp BP Pulse Ox 98.5 F 96 18 136/84 100 11/04/19 15:20 11/04/19 15:20 11/04/19 15:20 11/04/19 15:20 11/04/19 15:20 Temp Pulse Resp BP Pulse Ox 98.4 F 100 14 136/84 100 11/08/19 14:00 11/08/19 14:00 11/08/19 14:00 11/08/19 14:00 11/08/19 14:00 Awake and alert. Const: General: no acute distress HENMT: Mouth: Yes moist mucous membranes Neck: Neck: supple Lymphatic: lymphadenopathy not noted Resp: Auscultation: clear to auscultation bilaterally, no rales and no wheezes Cardio: Rate: regular rate Rhythm: regular rhythm Skin: General skin exam: normal color Neuro: General: gait normal and No confusion Cognition (Neuro): normal cognition Speech: normal speech Extrem: General: no edema Psych: Mental Status: mental status grossly normal Affect: normal affect DS: Data Data Completed and Pending Completed studies during hospitalization: Yuan
== END 2019-11-08 16:05 | disposition home or self-care (01) | DRG 76 ==
LOC: ANHED 17:55 → ANH2MED 18:44
PROVIDERS: Internal Medicine; Admitting Provider Family Medicine; Emergency Provider Emergency Medicine; Visit Provider Hospitalist
DX: B00.3 Herpesviral meningitis (principal)
CPT/HCPCS: 36415; 62270; 74177; 80048; 80053; 80202; 81001; 81025; 82565; 82945; 83605; 83690; 84157; 85025; 87040; 87070; 87491; 87529; 87591; 87804; 87808; 88108; 89051; 96361; 96365; 96367; 96374; 96375; 99284; 99285; A9270; J0131; J0133; J0696; J1200; J1885; J2405; J2765; J3010; J3370; J7030; J7060; J7120; Q9967

== ENCOUNTER 2020-08-27 15:25 | Outpatient (CLI) | payer OTHER, BC, SELFPAY ==
[2020-08-27 16:04] LABS: Add Urine Microscopic? YES; Amorphous Sediment Urine Few; Appearance Urine Cloudy (Clear); Bacteria Urine Trace /hpf; Bilirubin Urine Negative (Negative); Blood Urine 1+ (Negative); Color Urine Yellow (Yellow); Glucose Urine UA Negative (Negative); Ketones Urine Negative (Negative); Leukocyte Esterase Ur Negative LEU/UL (Negative); Mucus Urine Heavy /lpf; Nitrate Urine Negative (Negative); Protein Urine 1+ mg/dL (Negative); Squamous Epithelial Cell Urine Few /hpf (Few)
[2020-08-27 16:52] LABS: HIV 1/2 Ab P24 Ag Result Negative (Negative)
[2020-08-27 17:17] LABS: Hepatitis B Surface Antigen Negative (Negative)
[2020-08-27 17:22] LABS: HAV RESULT Negative (Negative); Hepatitis B Core IgM Result Negative (Negative)
[2020-08-27 17:34] LABS: Hepatitis C Virus Antibody Negative (Negative)
[2020-08-28 10:49] LABS: Rapid Plasma Reagin Non-Reactive (NonReactive)
== END 2020-08-27 15:26 | disposition home or self-care (01) ==
LOC: ANHLAB 15:27
PROVIDERS: Visit Provider Obstetrics & Gynecology
DX: Z11.3 Encounter for screening for infections with a predominantly sexual mode of transmission (principal); R30.9 Painful micturition, unspecified; Z51.81 Encounter for therapeutic drug level monitoring; Z79.899 Other long term (current) drug therapy
CPT/HCPCS: 36415; 80074; 81001; 86592; 86695; 86696; 86703; G0432

== ENCOUNTER 2022-02-21 19:35 | Emergency (ER) | payer OTHER, SELFPAY ==
[2022-02-21 19:57] VITALS: BP 134/92; PULSE 104; RESP 16; TEMP 37.1; O2SAT 98
--- NOTE | 2022-02-21 20:05 | ED.URI ---
HPI - URI/Sore Throat General Chief Complaint: Upper Respiratory Infection Stated Complaint: sore throat, purple urine Time Seen by Provider: 02/21/22 20:05 History of Present Illness HPI Narrative: Patient is a 26-year-old female presenting to the emergency department for evaluation of sore throat, change in coloration of urine. Patient states she has had a sore throat over the past 72 hours and initially presented to a [facility] outpatient clinic and was diagnosed with strep pharyngitis despite having a negative rapid strep. Given the appearance of her pharynx, patient was started on oral amoxicillin which she has been taking over the past 48 hours. Patient denies any improvement in her sore throat or pain. Patient does report she has had fevers up to 102 Fahrenheit. Patient reports she was tested for COVID and it was negative. She denies cough, chest pain, shortness of breath. She denies abdominal pain. No nausea or vomiting. Patient does report that today her urine had a purple coloration to it. She denies flank pain, dysuria or hematuria. Patient without history of sexual transmitted infection. She is monogamous with partner. Denies vaginal discharge or bleeding. Denies history of chlamydia or gonorrhea. Related Data Home Medications Medication Instructions Recorded Confirmed amoxicillin 250 mg capsule mg 02/21/22 Allergies Allergy/AdvReac Type Severity Reaction Status Date / Time No Known Allergies Allergy Verified 02/21/22 20:18 Review of Systems Review of Systems: CONSTITUTIONAL: Reports fever and chills EYES: Denies visual changes, redness, or discharge. ENT: Denies rhinorrhea, congestion, reports sore throat and left ear otalgia CARDIOVASCULAR: Denies chest pain, palpitations, or edema. RESPIRATORY: Denies cough or dyspnea. GASTROINTESTINAL: Denies abdominal pain, nausea, vomiting, or diarrhea. GENITOURINARY: Denies dysuria or hematuria. Reports purple coloration to urine SKIN: Denies rash or itching. MUSCULOSKELETAL: Denies back pain, joint pain, or myalgia. NEUROLOGIC: Denies headache, numbness, or weakness. [facility] Past Medical History Medical History (Updated 02/21/22 @ 21:53 by Niki Campbell MD) DVT prophylaxis Meningitis No significant past medical history Viral meningitis Surgical History Surgical History No significant past surgical history Family History Family History Father Congestive heart failure Social History Social History Social History: Primary care physician: None Code status: Full code Smoking status: Never smoker Alcohol intake: current Drinks per week: 2 Alcohol use details: She drinks 2-3 glasses a wine a week Substance use: never Substance use type: does not use Additional occupation/education comments: 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 Gender identity (if verbalized by the patient): Female Spiritual care concerns: No Agree to blood products: Yes Exam Narrative: GENERAL: Awake, alert, conversant HEAD: Normocephalic, atraumatic. EYES: PERRLA and EOMI. ENT: Nares clear, no rhinorrhea or epistaxis. Mucous membranes moist. Uvula is midline. There is tonsillar edema with white exudate bilaterally and erythema of the oropharynx. The tongue is not protruding, there is no elevation of the floor of the mouth. No trismus. Tympanic membranes clear bilaterally. NECK: Supple. There is anterior cervical lymphadenopathy bilaterally. No neck edema. CHEST: No respiratory distress, breathing even and non labored HEART: Tachycardic rate, sinus rhythm ABDOMEN:Non distended, non tender EXTREMITIES: Normal range of motion. No edema. SKIN: Warm, dry, no rash. NEURO:No focal deficits. Alert and oriented x3 Course Vital Signs Vital signs: Vital Signs Tempera
[2022-02-21 20:27] LABS: Basophils Absolute Auto 0.1 K/mm3 (0.0-0.1); Basophils Percent Auto 0.4 % (0.2-1.2); Eosinophils Absolute Auto 0.1 K/mm3 (0-0.3); Eosinophils Percent Auto 0.6 % (0-4.4); Hematocrit 42.6 % (37.0-47.0); Hemoglobin 13.9 g/dL (12.0-15.0); Immature Granulocyte Absolute 0.06 K/mm3 (0.00-0.031); Immature Granulocyte Percent A 0.4 % (0-0.5); Lymphocytes Absolute Auto 2.19 K/mm3 (0.9-3.2); Lymphocytes Percent Auto 15.4 % (18.3-44.2); Mean Corpuscular HGB Conc 32.6 g/dl (32-36); Mean Corpuscular Hemoglobin 31.7 pg (26-34); Mean Platelet Volume 10.2 fl (7.4-10.4); Monocytes Absolute Auto 2.1 K/mm3 (0.1-0.6); Monocytes Percent Auto 14.8 % (2.6-8.5); Neutrophils Absolute Auto 9.7 K/mm3 (1.3-6.7); Neutrophils Percent Auto 68.4 % (45.5-73.1); Platelet Count Result 189 k/mm3 (150-375); Red Blood Count 4.39 M/mm3 (4.2-5.4); Red Cell Distribution Width 12.5 % (11.5-14.5); White Blood Count 14.2 K/mm3 (4.5-10.0)
[2022-02-21 20:43] LABS: Alanine Aminotransferase 20 U/L (6-35); Albumin Level 4.1 g/dL (3.5-5.1); Alkaline Phosphatase 120 U/L (38-126); Anion Gap 7 mmol/L (8-16); Aspartate Amino Transferase 24 U/L (14-36); Bilirubin,Total 0.5 mg/dL (0.2-1.3); Blood Urea Nitrogen 11 mg/dL (7-17); Calcium 8.5 mg/dL (8.4-10.2); Carbon Dioxide 26 mmol/L (22-30); Chloride 106 mmol/L (98-107); Estimated CRCL calculation 95 ml/min; Estimated Glomerular Filt Rate > 60; Glucose 96 mg/dL (65-110); Potassium 4.4 mmol/L (3.4-5.0); Sodium 139 mmol/L (137-145)
[2022-02-21] MEDS: KETOROLAC 15 MG/ML VIAL (*BKC) IM (20:46)
[2022-02-21 20:47] LABS: Appearance Urine Cloudy (Clear); Bilirubin Urine 2+ (Negative); Blood Urine 3+ (Negative); Color Urine Amber (Yellow); Glucose Urine UA Negative (Negative); Ketones Urine 1+ mg/dL (Negative); Leukocyte Esterase Ur Negative LEU/UL (Negative); Nitrate Urine Negative (Negative); Protein Urine 3+ mg/dL (Negative); Specific Grav Ur 1.025 (1.001-1.035); pH Urine 5.5 (5.0-9.0)
[2022-02-21 21:00] LABS: Amorphous Sediment Urine Few; Bacteria Urine Trace /hpf; Mucus Urine Few /lpf; RBC Urine >75 /hpf (0-2); Squamous Epithelial Cell Urine Moderate /hpf (Few); WBC Urine 16-20 /hpf
[2022-02-21 21:01] LABS: Add Urine Microscopic? YES
[2022-02-21 21:16] LABS: Monoscreen Negative (Negative); Negative Monotest Control Negative (Negative); Positive Monotest Control Positive (Positive)
[2022-02-21 21:28] VITALS: BP 122/82; PULSE 89; RESP 20; O2SAT 100
[2022-02-21] MEDS: CLINDAMYCIN HCL 150 MG CAP 300 MG PO (22:18)
[2022-02-21 22:28] VITALS: BP 112/86; PULSE 89; RESP 16; O2SAT 98
== END 2022-02-21 22:20 | disposition home or self-care (01) ==
PROVIDERS: Emergency Provider Emergency Medicine
DX: J02.9 Acute pharyngitis, unspecified (principal); R31.9 Hematuria, unspecified
CPT/HCPCS: 36415; 80053; 81001; 81025; 85025; 86308; 87081; 87086; 96372; 99283; A9270; J1100; J1885